=== PATIENT | female | born 1990 | race Caucasian/White ===

== ENCOUNTER → 2017-03-28 | Outpatient (CLI) | payer OTHER ==
[~2017-03-28] MED LIST: IBUP600 PO; OXYACE5T PO; Verotin-Gr Cap1 EACH PO
[2017-03-29 15:15] LABS: Source VAGINAL
== END ==
LOC: LAB 12:18
PROVIDERS: Obstetrics & Gynecology
DX: Z01.419 Encounter for gynecological examination (general) (routine) without abnormal findings (principal)
CPT/HCPCS: G0123